=== PATIENT | female | born 1945 | race Native Hawaiian/Other Pacific Islander ===

== ENCOUNTER 2021-02-02 16:38 | Emergency (ER) | payer OTHER ==
[~2021-02-02] VITALS: Ht 157.5 cm; Wt 75.3 kg
[2021-02-02 17:18] LABS: PLATELET COUNT 370 K/uL (152-353)
[2021-02-02 22:40] VITALS: BP 130/70; TEMP 97.6
== END 2021-02-02 22:40 | disposition home or self-care (01) ==
LOC: ED 16:38
PROVIDERS: Emergency Medicine
DX: K52.89 Other specified noninfective gastroenteritis and colitis (principal); N39.0 Urinary tract infection, site not specified; R11.2 Nausea with vomiting, unspecified; R19.7 Diarrhea, unspecified; Z20.822 Contact with and (suspected) exposure to COVID-19
CPT/HCPCS: 80053; 82150; 83690; 84484; 85027; 87635; 96360; 96361; 96365; 96372; 96375; 99284; J0696; J1885; J2405; Q9963; U0003

== ENCOUNTER 2021-12-24 10:22 | Outpatient (CLI) | payer OTHER | END 2021-12-24 22:24 | disposition home or self-care (01) | LOC: MAMMO 10:22 | PROVIDERS: ATTEND Nurse Practitioner | DX: Z12.31 Encounter for screening mammogram for malignant neoplasm of breast (principal); Z13.820 Encounter for screening for osteoporosis; N95.8 Other specified menopausal and perimenopausal disorders ==

== ENCOUNTER 2022-12-29 12:52 | Outpatient (CLI) | payer OTHER | END 2022-12-29 19:08 | disposition home or self-care (01) | LOC: MAMMO 12:52 | PROVIDERS: ATTEND Nurse Practitioner | DX: Z12.31 Encounter for screening mammogram for malignant neoplasm of breast (principal) ==